=== PATIENT | female | born 1990 | race Caucasian/White ===

== ENCOUNTER 2017-03-18 14:27 | Emergency (ER) | payer OTHER ==
[2017-03-18] MEDS ORDERED: IV NORMAL SALINE 1,000ML 1,000 ML IV SCH (14:39)
[2017-03-18] MEDS ORDERED: ONDANSETRON PF 4 MG/2 ML VIAL. IV ONE (14:45)
[2017-03-18 14:47] LABS: BASO # 0.1 x10^3/uL (0.0-0.2); BASO % 0 % (0-3); EOS # 0.3 x10^3/uL (0.0-0.7); EOS % 1 % (0-3); HEMATOCRIT 48.4 % (36.0-47.0); HEMOGLOBIN 16.4 g/dL (12.0-15.5); LYMPH # 0.7 x10^3/uL (1.0-4.8); LYMPH % 3 % (24-48); MEAN CORPUSCULAR HEMOGLOBIN 30 pg (25-35); MEAN CORPUSCULAR HGB CONC 34 g/dL (31-37); MEAN CORPUSCULAR VOLUME 90 fL (79-100); MONO % 4 % (0-9); NEUT % 91 % (31-73); PLATELET COUNT 356 x10^3/uL (140-400); RED CELL DISTRIBUTION WIDTH 12.7 % (11.5-14.5)
[2017-03-18 14:57] LABS: ALBUMIN 4.4 g/dL (3.4-5.0); ALBUMIN/GLOBULIN RATIO 1.1 (1.0-1.7); CALCIUM 9.2 mg/dL (8.5-10.1); POTASSIUM 4.3 mmol/L (3.5-5.1); TOTAL BILIRUBIN 0.9 mg/dL (0.2-1.0); TOTAL PROTEIN 8.4 g/dL (6.4-8.2)
--- NOTE | 2017-03-18 15:09 | PHYS DOC ---
Past History Past Medical History: Depression, Hypothyroid Past Surgical History: No Surgical History Alcohol Use: Rarely Drug Use: None Adult General Chief Complaint Chief Complaint: NAUSEA/VOMITING/DIARRHEA HPI HPI Patient is a 26 year old female who presents with complaint of nausea, vomiting , and diarrhea. Patient states her symptoms started earlier today and have been persistent throughout the day. Patient states that she's had too numerous to count episodes of vomiting and loose stools. Patient also states that she is having generalized abdominal pain and body aches associated with her symptoms. Patient denies any fevers. Patient states that she has had exposure to a sick contact to had similar symptoms in her household. Patient has not taken any medications to help with symptoms. The patient states that she has not had a recent menstrual period that she is currently on Mirena for control. Review of Systems Review of Systems Constitutional: Chills[] Eyes: Denies change in visual acuity, redness, or eye pain [] HENT: Denies nasal congestion or sore throat [] Respiratory: Denies cough or shortness of breath [] Cardiovascular: Denies chest pain or edema[] GI: Nausea, vomiting, diarrhea, generalized abdominal pain[] : Denies dysuria or hematuria [] Musculoskeletal: Denies back pain or joint pain [] Integument: Denies rash or skin lesions [] Neurologic: Denies headache, focal weakness or sensory changes [] Current Medications Current Medications Current Medications Medications (Trade) Dose Ordered Sig/Tuan Start Time Stop Time Status Last Admin Dose Admin Ondansetron HCl (Zofran) 4 mg 1X ONCE 03/18/17 14:45 03/18/17 14:53 DC 03/18/17 14:45 4 MG Sodium Chloride 1,000 ml @ 1,000 mls/hr Q1H 03/18/17 14:39 03/18/17 15:38 03/18/17 14:44 1,000 MLS/HR Allergies Allergies Allergies Coded Allergies Type Severity Reaction Last Updated Verified No Known Drug Allergies 03/18/17 No Physical Exam Physical Exam Constitutional: Alert, afebrile, actively vomiting[] HENT: Normocephalic, atraumatic, bilateral external ears normal, oropharynx dry , no oral exudates, nose normal. [] Eyes: PERRLA, EOMI, conjunctiva normal, no discharge. [] Neck: Normal range of motion, no tenderness, supple, no stridor. [] Cardiovascular:Heart rate regular rhythm, no murmur [] Lungs & Thorax: Bilateral breath sounds clear to auscultation [] Abdomen: Hyperactive bowel sounds, soft, generalized tenderness in all 4 quadrants, no localized tenderness to palpation, no masses, no pulsatile masses. [] Skin: Warm, dry, no erythema, no rash. [] Back: No tenderness, no CVA tenderness. [] Extremities: No tenderness, no cyanosis, no clubbing, ROM intact, no edema. [] Neurologic: Alert and oriented X 3, normal motor function, normal sensory function, no focal deficits noted. [] Current Patient Data Vital Signs Vital Signs Date Time Temp Pulse Resp B/P (MAP) Pulse Ox O2 Delivery O2 Flow Rate FiO2 03/18/17 14:30 98.2 84 18 100 Room Air Lab Results Laboratory Tests Test 03/18/17 14:31 White Blood Count 23.0 x10^3/uL (4.0-11.0) H Red Blood Count 5.40 x10^6/uL (3.50-5.40) Hemoglobin 16.4 g/dL (12.0-15.5) H Hematocrit 48.4 % (36.0-47.0) H Mean Corpuscular Volume 90 fL (79-100) Mean Corpuscular Hemoglobin 30 pg (25-35) Mean Corpuscular Hemoglobin Concent 34 g/dL (31-37) Red Cell Distribution Width 12.7 % (11.5-14.5) Platelet Count 356 x10^3/uL (140-400) Neutrophils (%) (Auto) 91 % (31-73) H Lymphocytes (%) (Auto) 3 % (24-48) L Monocytes (%) (Auto) 4 % (0-9) Eosinophils (%) (Auto) 1 % (0-3) Basophils (%) (Auto) 0 % (0-3) Neutrophils # (Auto) 21.0 x10^3uL (1.8-7.7) H Lymphocytes # (Auto) 0.7 x10^3/uL (1.0-4.8) L Monocytes # (Auto) 1.0 x10^3/uL (0.0-1.1) Eosinophils # (Auto) 0.3 x10^3/uL (0.0-0.7) Basophils # (Auto) 0.1 x10^3/uL (0.0-0.2) Platelet Estimate Pending Sodium Level 139 mmol/L (136-145) Potassium Level 4.3 mmol/L (3.5-5.1) Chloride Level 102 mmol/L (98-107) Carbon Dioxide Level 25 mmol/L (21-32) Anion Gap 12 (6-14) Blood Urea Nitrogen 17 mg/dL (7-20) Creatinine 1.0 mg/dL (0.6-1.0) Estimated GFR (Cockcroft-Gault) 67.0 BUN/Creatinine Ratio 17 (6-20) Glucose Level 105 mg/dL (70-99) H Calcium Level 9.2 mg/dL (8.5-10.1) Total Bilirubin 0.9 mg/dL (0.2-1.0) Aspartate Amino Transferase (AST) 19 U/L (15-37) Alanine Aminotransferase (ALT) 23 U/L (14-59) Alkaline Phosphatase 107 U/L (46-116) Total Protein 8.4 g/dL (6.4-8.2) H Albumin 4.4 g/dL (3.4-5.0) Albumin/Globulin Ratio 1.1 (1.0-1.7) Lipase 333 U/L (73-393) EKG EKG Not performed[] Radiology/Procedures Radiology/Procedures Not performed[] Course & Med Decision Making Course & Med Decision Making Pertinent Labs and Imaging studies reviewed. (See chart for details) Patient was given 2 L of IV fluids and Zofran in the emergency department. Patient now able to tolerate oral intake. Patient does not have localizing pain on the exam. Etiology of patient's symptoms likely viral given history of sick contacts. The patient's leukocytosis is likely due to leukemoid reaction from dehydration and vomiting. Advise follow-up in one to 2 days a primary doctor for reevaluation. Advised return emergency department for any worsening symptoms. Patient voiced understanding and in agreement with treatment plan. Dragon Disclaimer Dragon Disclaimer This chart was dictated in whole or in part using Voice Recognition software in a busy, high-work load, and often noisy Emergency Department environment. It may contain unintended and wholly unrecognized errors or omissions. Departure Departure: Impression: Primary Impression: Nausea and vomiting Additional Impressions: Leukocytosis Diarrhea Abdominal pain Disposition: 01 HOME, SELF-CARE Condition: IMPROVED Referrals: [facility] (PCP) Patient Instructions: Abdominal Pain (Nonspecific), Diarrhea, Leukocytosis, Nausea and Vomiting Additional Instructions: Follow-up with your primary doctor in 1-2 days for reevaluation. You were found to have high white count of 23,000 today. This is likely due to stress from vomiting and dehydration. It is recommended that you have a complete blood count , or CBC, repeated in the next few days once sure symptoms are resolving to ensure that this value is decreasing. Return to the emergency department for any worsening symptoms. Scripts Famotidine (PEPCID) 20 Mg Tablet 1 TAB PO BID, #20 TAB 0 Refills Prov: RL SANTIAGO MD 03/18/17 Ondansetron (ZOFRAN ODT) 4 Mg Tab.rapdis 1 TAB SL Q8HRS Y for NAUSEA/VOMITING, #15 TAB Prov: RL SANTIAGO MD 03/18/17 Problem Qualifiers Primary Impression: Nausea and vomiting Vomiting type: unspecified Vomiting Intractability: unspecified Qualified Codes: R11.2 - Nausea with vomiting, unspecified Additional Impressions: Leukocytosis Leukocytosis type: leukemoid reaction Qualified Codes: D72.823 - Leukemoid reaction Diarrhea Diarrhea type: presumed infectious Qualified Codes: A09 - Infectious gastroenteritis and colitis, unspecified Abdominal pain Abdominal location: generalized Qualified Codes: R10.84 - Generalized abdominal pain RL SANTIAGO MD Mar 18, 2017 15:09
[2017-03-18] MEDS ORDERED: IV NORMAL SALINE 1,000ML 1,000 ML IV ONE (15:15)
[2017-03-18] MEDS ORDERED: KETOROLAC 30 MG/ML VIAL. IV ONE (16:00)
[2017-03-18 16:05] VITALS: BP 116/68
[2017-03-18 16:18] LABS: BILIRUBIN,URINE NEG (NEG); CLARITY,URINE HAZY; COLOR,URINE YELLOW; GLUCOSE,URINE NEG (NEG); NITRITE,URINE NEG (NEG); UROBILINOGEN,URINE 0.2 mg/dL (0.2 mg/dL)
[2017-03-18 16:19] LABS: BACTERIA,URINE 0 /HPF (0-FEW); SQUAMOUS EPITHELIAL CELL,UR MOD /LPF
[2017-03-18] MEDS ORDERED: FAMO-63 PO (16:38)
[2017-03-18] MEDS ORDERED: ONDA4TAB10 SL (16:38)
[2017-03-18 16:41] LABS: % BANDS 4 % (0-9); % EOS 1 % (0-5); % LYMPHS 1 % (24-48); % MONOS 5 % (0-10); % SEGS 85 % (35-66)
[2017-03-18 18:18] LABS: PLT ESTIMATE ADEQUATE (ADEQUATE)
[2017-03-18 18:20] LABS: TOXIC GRANULATION PRESENT
[2017-03-18 20:26] LABS: % ATYL 4 % (0-0)
== END 2017-03-18 16:44 | disposition home or self-care (01) ==
LOC: ER 14:27
DX: R11.2 Nausea with vomiting, unspecified (principal); R10.84 Generalized abdominal pain; D72.823 Leukemoid reaction; E03.9 Hypothyroidism, unspecified; A09 Infectious gastroenteritis and colitis, unspecified
CPT/HCPCS: 36415; 80053; 81001; 81025; 83690; 85007; 85025; 96361; 96374; 96375; 99284; J1885; J2405; J7030

== ENCOUNTER → 2020-08-23 | Outpatient (CLI) | payer OTHER ==
[~2020-08-23] MED LIST: FAMO-63 PO; ONDA4TAB10 SL
--- NOTE | 2020-08-23 17:34 | RAD ---
EXAM: Left knee, 3 views. HISTORY: Fall. COMPARISON: None. FINDINGS: 3 views left knee are obtained. There is no fracture, dislocation or subluxation. There is a moderate knee effusion. There is a suspected bone island within the distal femur. IMPRESSION: Moderate knee effusion. Electronically signed by: Becky Lim MD (08/23/2020 5:32 PM) [facility]
== END ==
LOC: RAD 12:01
PROVIDERS: ATTEND Physician Assistant Medical
DX: M25.462 Effusion, left knee (principal)
CPT/HCPCS: 73562

== ENCOUNTER → 2021-05-09 | Outpatient (CLI) | payer OTHER ==
--- NOTE | 2021-05-09 13:12 | RAD ---
EXAM: Chest, 2 views. HISTORY: Chest pain. COMPARISON: None. FINDINGS: 2 views of the chest are obtained. There is no infiltrate, pleural effusion or pneumothorax . The heart is normal in size. IMPRESSION: No acute pulmonary finding. Electronically signed by: Becky Lim MD (05/09/2021 1:10 PM) [id number]
== END ==
LOC: RAD 12:53
PROVIDERS: ATTEND Physician Assistant Medical
DX: R07.9 Chest pain, unspecified (principal)
CPT/HCPCS: 71046